=== PATIENT | female | born 1975 | race Two or more races ===

== ENCOUNTER 2021-08-31 00:32 | Inpatient (IN) | payer OTHER ==
[~2021-08-31] VITALS: Ht 162.6 cm; Wt 120.0 kg
[2021-08-31 02:39] LABS: Basophils # (auto) 0.1 10 ^3/uL (0-0.2); Basophils % (auto) 0.9 % (0.0-2.0); Eosinophils # (auto) 0.2 10 ^3/uL (0-0.8); Hematocrit 38.3 % (36.0-46.0); Hemoglobin 12.7 g/dL (12.2-16.2); Lymphocytes # (auto) 2.6 10 ^3/uL (0.4-5.4); Lymphocytes % (auto) 27.3 % (10.0-50.0); Mean Corpuscular Hemoglobin 30.6 pg (28.0-32.0); Mean Corpuscular Hgb Conc. 33.2 g/dL (32.0-36.0); Neutrophils # (auto) 5.5 10 ^3/uL (1.6-8.6); Neutrophils % (auto) 58.8 % (37.0-80.0); Nucleated Red Blood Cells % 0.1 %; Red Blood Cells 4.17 10^6/uL (4.0-5.20); Red Cell Distribution Width 12.8 % (11.8-14.3); White Blood Cell 9.4 10^3/uL (4.4-10.8)
[2021-08-31 02:53] LABS: INR 1.03 (0.9-1.15)
[2021-08-31 03:43] LABS: Potassium 3.8 mmol/L (3.5-5.1)
[2021-08-31 03:49] LABS: Albumin 3.3 g/dL (3.4-5.0); BUN/Creatinine Ratio 17.3; Bilirubin, Total 0.3 mg/dL (0.2-1.0); Calcium 8.6 mg/dL (8.5-10.1); Magnesium 2.2 mg/dL (1.6-2.6); Total Protein 7.2 g/dL (6.4-8.2)
[2021-08-31] MEDS ORDERED: IOHEXOL 300 MG/ML 100ML BOTTLE IJ ONE (04:25)
[2021-08-31] MEDS ORDERED: CLINDAMYCIN 600MG IV 50 ML IV ONE (05:45)
[2021-08-31] MEDS ORDERED: SODIUM CHLORIDE 0.9% 1,000 ML IV ONE (05:45)
[2021-08-31 08:54] LABS: Urine Bacteria FEW /hpf (None Seen); Urine Blood 1+ /uL (Negative); Urine Mucus FEW (None Seen); Urine WBC 16 /hpf (0 - 5)
[2021-08-31 09:30] LABS: Urine Specific Gravity > 1.050 (1.001-1.035)
[2021-08-31] MEDS ORDERED: MORPHINE SULFATE INJECTION 2 MG/ML SYRG IV PRN (11:30)
[2021-08-31] MEDS ORDERED: HYDROcodone-ACET 5/325MG TAB PO PRN (11:30)
[2021-08-31] MEDS ORDERED: NITROGLYCERIN 0.4 MG SL TAB SL PRN (11:30)
[2021-08-31] MEDS ORDERED: VANCOMYCIN PER PHARMACY 0 MG IV SCH (11:30)
[2021-08-31] MEDS: PIPERACILLIN-TAZOB 3.375GM 100 ML IV SCH ×3 (12:36→23:50)
[2021-08-31] MEDS: VANCOMYCIN 1GM/250ML 250 ML IV SCH (16:10)
[2021-08-31 16:50] VITALS: BP 135/77
[2021-08-31] MEDS ORDERED: DOCUSATE SOD 100 MG CAP PO PRN (19:45)
[2021-08-31] MEDS ORDERED: TEMAZEPAM 15 MG CAP PO PRN (19:45)
[2021-08-31] MEDS ORDERED: HYDROmorphone HCL 2 MG/ML VL IV PRN (19:45)
[2021-08-31 22:00] VITALS: BP 125/68
[2021-08-31] MEDS: PANTOPRAZOLE 40 MG TAB PO SCH (22:07)
[2021-09-01] MEDS: VANCOMYCIN 1GM/250ML 250 ML IV SCH ×2 (03:05→15:10)
[2021-09-01] MEDS: PIPERACILLIN-TAZOB 3.375GM 100 ML IV SCH ×4 (06:02→23:47)
[2021-09-01 08:34] VITALS: BP 117/78
[2021-09-01] MEDS: TRIAMTERENE/HCTZ 37.5/25 MG CAP/TAB PO SCH (09:39)
[2021-09-01] MEDS: ENOXAPARIN SOD 40 MG/0.4 ML SYRINGE SC SCH (09:39)
[2021-09-01] MEDS: PANTOPRAZOLE 40 MG TAB PO SCH ×2 (09:39→22:18)
[2021-09-01 12:53] VITALS: BP 96/59
[2021-09-01 16:38] VITALS: BP 115/74
[2021-09-01 22:00] VITALS: BP 135/72
[2021-09-02] MEDS: VANCOMYCIN 1GM/250ML 250 ML IV SCH ×2 (02:48→14:49)
[2021-09-02 05:00] VITALS: BP_SYST 121; BP_SYST 98; BP_DIAS 50; BP_DIAS 69
[2021-09-02] MEDS: PIPERACILLIN-TAZOB 3.375GM 100 ML IV SCH ×3 (05:45→17:38)
[2021-09-02 09:11] VITALS: BP 113/69
[2021-09-02] MEDS: ENOXAPARIN SOD 40 MG/0.4 ML SYRINGE SC SCH (09:17)
[2021-09-02] MEDS: PANTOPRAZOLE 40 MG TAB PO SCH ×2 (09:17→22:12)
[2021-09-02] MEDS: TRIAMTERENE/HCTZ 37.5/25 MG CAP/TAB PO SCH (09:17)
[2021-09-02 13:00] VITALS: BP 108/70
[2021-09-02 16:58] VITALS: BP 126/73
[2021-09-02 22:00] VITALS: BP 120/74
[2021-09-03] MEDS: PIPERACILLIN-TAZOB 3.375GM 100 ML IV SCH ×5 (00:08→23:52)
[2021-09-03] MEDS: VANCOMYCIN 1GM/250ML 250 ML IV SCH ×2 (03:45→15:01)
[2021-09-03 05:00] VITALS: BP 114/69
[2021-09-03 09:00] VITALS: BP 115/74
[2021-09-03] MEDS: TRIAMTERENE/HCTZ 37.5/25 MG CAP/TAB PO SCH (09:44)
[2021-09-03] MEDS: PANTOPRAZOLE 40 MG TAB PO SCH ×2 (09:44→21:53)
[2021-09-03] MEDS: ENOXAPARIN SOD 40 MG/0.4 ML SYRINGE SC SCH (09:45)
[2021-09-03 12:47] VITALS: BP 110/60
[2021-09-03 16:59] VITALS: BP 107/69
[2021-09-03 20:43] LABS: Basophils # (auto) 0.1 10 ^3/uL (0-0.2); Basophils % (auto) 0.8 % (0.0-2.0); Eosinophils # (auto) 0.3 10 ^3/uL (0-0.8); Eosinophils % (auto) 4.8 % (0.0-7.0); Hematocrit 43.6 % (36.0-46.0); Lymphocytes # (auto) 2.1 10 ^3/uL (0.4-5.4); Lymphocytes % (auto) 30.1 % (10.0-50.0); Mean Corpuscular Hgb Conc. 32.1 g/dL (32.0-36.0); Mean Corpuscular Volume 93.5 fL (80.0-100.0); Monocytes # (auto) 0.6 10 ^3/uL (0-1.3); Monocytes % (auto) 8.7 % (0.0-12.0); Neutrophils % (auto) 55.6 % (37.0-80.0); Nucleated Red Blood Cells % 0.2 %; Red Blood Cells 4.67 10^6/uL (4.0-5.20); Red Cell Distribution Width 13.1 % (11.8-14.3); White Blood Cell 7.1 10^3/uL (4.4-10.8)
[2021-09-03 21:48] LABS: BUN/Creatinine Ratio 13.9; Potassium 4.1 mmol/L (3.5-5.1)
[2021-09-03 22:00] VITALS: BP 109/75
[2021-09-04] MEDS: VANCOMYCIN 1GM/250ML 250 ML IV SCH (03:02)
[2021-09-04 05:00] VITALS: BP 113/66
[2021-09-04] MEDS: PIPERACILLIN-TAZOB 3.375GM 100 ML IV SCH ×2 (06:28→13:39)
[2021-09-04 08:55] VITALS: BP 105/68
[2021-09-04] MEDS: ENOXAPARIN SOD 40 MG/0.4 ML SYRINGE SC SCH (09:20)
[2021-09-04] MEDS: TRIAMTERENE/HCTZ 37.5/25 MG CAP/TAB PO SCH (09:20)
[2021-09-04] MEDS: PANTOPRAZOLE 40 MG TAB PO SCH (09:20)
[2021-09-04 13:00] VITALS: BP 109/65
[2021-09-04] MEDS ORDERED: AMOX500T86 PO (13:41)
[2021-09-04 15:48] VITALS: BP 105/68
== END 2021-09-04 16:13 | DRG 603 ==
LOC: EEVIPCON 00:32 → ER 00:32 → OVERFLOW 11:25 → EAST 15:23
PROVIDERS: ADMIT Specialist; ATTEND Internal Medicine
DX: L02.211 Cutaneous abscess of abdominal wall (principal); Z68.42 Body mass index [BMI] 45.0-49.9, adult; L02.214 Cutaneous abscess of groin; M79.3 Panniculitis, unspecified; L03.311 Cellulitis of abdominal wall; I10 Essential (primary) hypertension; E27.9 Disorder of adrenal gland, unspecified; Z20.822 Contact with and (suspected) exposure to COVID-19; E66.01 Morbid (severe) obesity due to excess calories; K76.0 Fatty (change of) liver, not elsewhere classified; R16.0 Hepatomegaly, not elsewhere classified; Z87.891 Personal history of nicotine dependence
CPT/HCPCS: 36415; 71045; 74177; 80048; 80053; 80202; 81001; 82565; 83735; 84702; 85025; 85610; 87040; 87205; 87426; 96365; G0378; J2543; J3490